=== PATIENT | male | born 1950 | race Caucasian/White ===

== ENCOUNTER → 2020-11-29 07:52 | Outpatient (CLI) | payer OTHER, SELFPAY ==
[2020-11-29] MEDS: COVID-19 VACC #1, MRNA(MOD) 100 MCG/0.5 ML VIAL IM (08:00)
== END ==
PROVIDERS: Visit Provider Internal Medicine
DX: Z23 Encounter for immunization (principal)
CPT/HCPCS: 0011A; 91301

== ENCOUNTER → 2020-12-27 07:49 | Outpatient (CLI) | payer OTHER, SELFPAY ==
[2020-12-27] MEDS: COVID-19 VACC #2, MRNA(MOD) 100 MCG/0.5 ML VIAL IM (07:53)
== END ==
PROVIDERS: Visit Provider Internal Medicine
DX: Z23 Encounter for immunization (principal)
CPT/HCPCS: 0012A; 91301

== ENCOUNTER → 2022-12-29 14:48 | Outpatient (CLI) | payer OTHER, MEDICARE, SELFPAY ==
--- NOTE | 2023-01-07 16:55 | DIAB.MNT ---
Initial Diabetes Medical Nutrition Therapy Assessment Name: Hero Meneses Date: 12/29/22 Time: 315-430p Dx: Type II Diabetes Provider: Gunnar Vin presents today for initial DM visit with , Tiff. Endorses PMH of DM x 10 years per report. FH of DM with both parents. Recent years feels he has been less careful with diet and hgA1c has crept up. Has DM cookbooks. Does not have a meter or strips. Use to check BG. Diet Recall: 730a: fast food breakfast sandwich with egg, sausage, sips of coke, hashbrown 12p: Eating out: pastrami on rye half Or 6 Czech OR soup OR Burger with med alejo and sips of coke 530p: 1.5-2c chili and 1c rice OR pasta x 2c with salad and meat sauce OR chicken with veg and potato Beverages: sips of coke, water x 30-40oz, 32oz tea, ETOH x 3-5 per week (one per sitting) Anthropometrics: Ht: 5'11 Wt: 185# reported Physical Activity: walk daily 15-20 min Self-Monitoring Blood Glucose: None Diabetes Medications: 4mg Glimepiride BID 30mg Pioglitizone 1000mg Metformin BID 23u Levemir HS Pertinent Labs: 08/2022 HgA1c : 8.6% Chol: 164 HDL: 49 T LDL: 95 Past Medical History: HTN, HLD reported Nutrition Rx: Carbohydrates: Meal:45g Snack:15-30g Nutrition Diagnosis: - Excessive CHO intake r/t nutrition knowledge deficit aeb diet recall - Self monitoring deficit r/t no SMBG aeb pt report Intervention: This participant was very receptive. Provided appropriate educational handouts. Discussed the following topics: Completed intake assessment. Discussed barriers to care. Pathophysiology of T2DM HgA1c, its correlation to blood glucose numbers, and rationale for goal Importance of self-monitoring, potential for restarting SMBG Plate Method, impact of macronutrients on blood sugar, Recommended servings for carbohydrates at meals and snacks Heart health nutrition Role of physical activity and following provider guidelines for safety Created SMART goals for patient self-care and success. Goals: 30 min walks daily keep CHO to 1-1.5c per serving Check into glucose meter Follow-up: RDN CDCES follow-up in 3-4 weeks Yi Boateng RDN, [facility] Certified Diabetes Care and Tea Room Manager P: [phone] Thank you for this referral
== END ==
PROVIDERS: Absent Provider Family Medicine; Family Provider Family Medicine; PCP Family Medicine; Referring Provider Family Medicine; Visit Provider Family Medicine
DX: E11.9 Type 2 diabetes mellitus without complications (principal); Z79.4 Long term (current) use of insulin; Z79.84 Long term (current) use of oral hypoglycemic drugs; Z71.3 Dietary counseling and surveillance
CPT/HCPCS: 97802

== ENCOUNTER → 2023-01-26 14:18 | Outpatient (CLI) | payer OTHER, MEDICARE, SELFPAY ==
--- NOTE | 2023-02-10 17:10 | DIAB.MNTFU ---
Follow-up Diabetes Medical Nutrition Therapy Assessment Name: Hero Meneses Date: 01/26/23 Time: 230-330p Dx: Type II Diabetes Provider: Gunnar Banuelos presents today for DM follow-up. Reports decreasing carb intake with breakfast choices, more eggs. States he has a weight loss goal of 5# q 3 months. Has reduced portions at dinner. Choosing no sugar added ice cream and has questions about ice cream portions/type. Diet recall indicates limited protein with some meals/snacks Long periods of fasting in afternoon sometimes, which may lead to larger portions at meals. Plans to see PCP in March. Anthropometrics: Ht: 5'11 Wt: 185# reported last visit Physical Activity: walk daily 25-30 min per day Self-Monitoring Blood Glucose: None but interested. Diabetes Medications: 4mg Glimepiride BID 30mg Pioglitizone 1000mg Metformin BID 23u Levemir HS Pertinent Labs: 08/2022 HgA1c : 8.6% Chol: 164 HDL: 49 T LDL: 95 Past Medical History: HTN, HLD reported Nutrition Rx: Carbohydrates: Meal:45g Snack:15-30g Nutrition Diagnosis: - Excessive CHO intake r/t nutrition knowledge deficit aeb diet recall - improved - Self monitoring deficit r/t no SMBG aeb pt report- continue - Inconsistent protein intake r/t nutrition knowledge deficit aeb pt report - new Intervention: This participant was very receptive. Provided appropriate educational handouts. Discussed the following topics: Pairing carbs and protein Label reading for net carbs Portions of ice cream and options for low carb choices Meal timing to avoid higher intake later in the day Eating out tips Weight loss recs for insulin sensitivity and realistic goal of 0.5-1# per week Physical activity plan and progress Created SMART goals for patient self-care and success. Goals: 30 min walks daily - met keep CHO to 1-1.5c per serving - improved Check into glucose meter - in progress Add protein to each meal/snack- new Add afternoon paired snack- new Follow-up: ILEANA MARCELO follow-up in 2-3 weeks Yi Boateng RDN, [facility] Certified Diabetes Care and Workers Compensation Attorney P: [phone] Thank you for this referral
== END ==
PROVIDERS: Family Provider Family Medicine; PCP Family Medicine; Referring Provider Family Medicine; Visit Provider Family Medicine
DX: E11.9 Type 2 diabetes mellitus without complications (principal); Z71.3 Dietary counseling and surveillance; Z79.4 Long term (current) use of insulin; Z79.84 Long term (current) use of oral hypoglycemic drugs
CPT/HCPCS: 97803

== ENCOUNTER → 2023-02-17 14:46 | Outpatient (CLI) | payer OTHER, MEDICARE, SELFPAY ==
--- NOTE | 2023-03-04 10:57 | DIAB.FU ---
Follow-up Diabetes Education Assessment Name: Hero Meneses Date: 02/17/23 Time: 3-350p Dx: Type II Diabetes Vin presents for Dm follow-up. Reports working on reducing carb portions. No ice cream lately. Pretty consistent elevations recently in BG, even after 3 hours. Physical Activity: Walking 10 min BID: once in the morning and another after breakfast. Self-Monitoring Blood Glucose: One FBG recorded of 151mg/dl. Otherwise, all readings 1-3 hours pc. Most pc readings between 200-250mg/dl with exception of a 122 and 169 mg/dl 3 hours after meals. Meals seems to range from 30-60g CHO per report. Diabetes Medications: 4mg Glimepiride BID 30mg Pioglitizone 1000mg Metformin BID 23u Levemir HS Pertinent Labs: 08/2022 HgA1c : 8.6% Chol: 164 HDL: 49 T LDL: 95 Past Medical History: HTN, HLD reported Intervention: This participant was very receptive. Provided appropriate educational handouts. Discussed the following topics: Recent blood sugar results and trends Medication management: action Pathophysiology review: gluconeogenesis and insulin resistance Review of general nutrition recommendations and current intake Physical activity plan and impact on blood sugars Created SMART goals for patient self-care and success. Goals: Add protein to each meal/snack- not met Add afternoon paired snack- not met Check BG- met Add apple and cheese to afternoon snack- new Check more FBG prior to walk- new Increase veggies at dinner- new Follow-up: ILEANA MARCELO follow-up recommended. Due to [employer]ANET/[employer] leave until Jul, unable to f/u until that time. Encouraged Vin to connect with provider regarding hyperglycemia. has f/u in March. Provided potential support resources in the interim. Yi Boateng RDN, [facility] Certified Diabetes Care and Survey Cad Technician P: [phone] Thank you for this referral
== END ==
PROVIDERS: Family Provider Family Medicine; PCP Family Medicine; Referring Provider Family Medicine; Visit Provider Family Medicine
DX: E11.9 Type 2 diabetes mellitus without complications (principal); Z79.84 Long term (current) use of oral hypoglycemic drugs; Z79.4 Long term (current) use of insulin; Z71.3 Dietary counseling and surveillance
CPT/HCPCS: G0108

== ENCOUNTER → 2023-06-14 14:25 | Outpatient (CLI) | payer OTHER, MEDICARE, SELFPAY ==
--- NOTE | 2023-06-14 | DI.RAD.S_ITS ---
PROCEDURE: XR SHOULDER RT MIN 2V INDICATIONS: SHOULDER PAIN TECHNIQUE: 3 views of the shoulder were acquired. COMPARISON: None. FINDINGS: Bones: No fractures or dislocations. No suspicious bony lesions. Visualized ribs appear intact. Glenohumeral and acromioclavicular joint space narrowing with associated osteophytosis. Soft tissues: No suspicious soft tissue calcifications. IMPRESSION: Moderate glenohumeral and acromioclavicular osteoarthritis. Dictated by: Jose Nguyen M.D. on 06/14/2023 at 15:50 Approved by: Jose Nguyen M.D. on 06/14/2023 at 15:51
== END ==
PROVIDERS: Family Provider Family Medicine; PCP Family Medicine; Referring Provider Family Medicine; Visit Provider Family Medicine
DX: M19.011 Primary osteoarthritis, right shoulder (principal); M25.511 Pain in right shoulder
CPT/HCPCS: 73030

== ENCOUNTER → 2023-08-10 14:27 | Outpatient (CLI) | payer OTHER, MEDICARE, SELFPAY ==
--- NOTE | 2023-08-11 16:52 | DIAB.MNTFU ---
Follow-up Diabetes Medical Nutrition Therapy Assessment Name: Hero Meneses Date: 08/10/23 Time: 230-310p Dx: Type II Diabetes Provider: Gunnar Banuelos presents for DM follow-up. Reports continued larger carb portions at dinner. Tried afternoon snack previously to reduce evening portions. Cannot recall if it was helpful but states he was not hungry in the afternoon. Willing to try afternoon snack again to try and reduce over consumption at dinner. Has questions about how stress impacts HTN and BG. Reports no current tools for stress management. Endorses elevated BP, not currently checking at home. Has questions regarding how to check BP properly. Vin eats out 2x per day, which may impact BP with high Na intake. Denies any changes to DM meds. Diet Recall: 8a: fast food breakfast sausage sandwich with hashbrown and a few sips of coke 1230p: Deli salad or bowl of soup 6-7p: chicken vegg, 2c rice or pasta sn: right after dinner, cheese or infrequently bowl of chips Anthropometrics: No wt today Physical Activity: walks 10-15 min twice in the morning. States his job has encouraged focused work time and small breaks to help manage stress. Interested in small walks during breaks. Self-Monitoring Blood Glucose: Reports PCP goal of FBG under 140mg/dl. Checked BG in June and most readings were 120s or less, so he stopped checking. No postprandial checks. Elevated hgA1c reported, between 7-8%? This indicates likely elevated BG later in the day. Diabetes Medications: 4mg Glimepiride BID 30mg Pioglitizone 1000mg Metformin BID 23u Levemir HS Pertinent Labs: RD will fax PCP office for new labs. 08/2022 HgA1c : 8.6% Chol: 164 HDL: 49 T LDL: 95 Past Medical History: HTN, HLD reported Nutrition Rx: Carbohydrates: Meal:45g Snack:15-30g Nutrition Diagnosis: Excessive CHO intake r/t eating out and long period of fasting in afternoon resulting in over consumption at dinner aeb diet recall Excessive Na intake r/t eating out aeb HTN and diet recall Self monitoring deficit r/t no BP or BG checks due to needing additional education aeb pt report Intervention: This participant was very receptive. Provided appropriate educational handouts. Discussed the following topics: Blood sugar review and trends of postprandial with elevated HgA1c and in goal FBG Plate Method, impact of macronutrients on blood sugar, meal timing, and spreading out carbohydrates for better blood glucose management Heart health nutrition: fats, fiber, and sodium Eating out and Na intake and HTN BP check technique and goals for people with DM per AHA Physical activity plan and progress Stress management Created SMART goals for patient self-care and success. Goals: Add apple and cheese to afternoon snack- in progress Check more FBG prior to walk- met Increase veggies at dinner- met Check pc BG readings- new Add afternoon snack again- new Try to aim for 1c CHO at dinner- new Take small breaks/walks at work- new Follow-up: ILEANA MARCELO follow-up in 2-3 weeks. Will address eating out again next visit in more detail. Yi Boateng RDN, [facility] Certified Diabetes Care and Electronic Security Specialist P: [phone] Thank you for this referral
== END ==
PROVIDERS: Family Provider Family Medicine; PCP Family Medicine; Referring Provider Family Medicine; Visit Provider Family Medicine
DX: E11.9 Type 2 diabetes mellitus without complications (principal); Z79.84 Long term (current) use of oral hypoglycemic drugs; Z79.4 Long term (current) use of insulin; Z71.3 Dietary counseling and surveillance
CPT/HCPCS: 97803

== ENCOUNTER → 2023-10-12 13:49 | Outpatient (CLI) | payer OTHER, MEDICARE, SELFPAY ==
--- NOTE | 2023-10-20 15:14 | DIAB.MNTFU ---
Follow-up Diabetes Medical Nutrition Therapy Assessment Name: Hero Meneses Date: 10/12/23 Time: 210-245p Dx: Type II Diabetes Provider: Gunnar Banuelos presents for Dm follow-up. Reports last HgA1c of 8.2%. Denies any med changes for DM. No change in work stress, though feels as though he is managing it better. No increase in movement at work, discussed last visit. Not checking Bp at home. States it was slightly elevated at PCP visit. Continued high Na intake with eating out breakfast and lunch 5 days per week or more. Has reduced fast food breakfast portions (now 45g CHO). Sometimes adding pm snack to help with dinner portions. Slight reduction i dinner potions reported. Overall feels he is reducing carb intake. Diet Recall: 8a: half hashbrown no eng muffin with breakfast sandwich (sausage and egg), sips of coke 1230p: half donald salad or bowl of soup at deli sn: nothing or apple and cheese 6-7p: veg, chicken, backed potato or 1-1.5c rice 7-8p: 2/3 mini bag popcorn Celia: water, black tea, mint tea, weekends cup of tea with 2tsp sugar Anthropometrics: Wt: 180-185# reported Physical Activity: 10-15 min walks BID mornings, plans to start tennis again. Goal of 60 min activity per week. Self-Monitoring Blood Glucose: No FBG recently, h/o 90-120mg/dl per report. Checked a few 2hr pc, 178-200s, highest of 230s mg/dl. States it is difficult to check BG pc consistently. Forgot BG log today . Diabetes Medications: 4mg Glimepiride BID 30mg Pioglitizone 1000mg Metformin BID 23u Levemir HS Pertinent Labs: HgA1c: 8% 05/2023 7.6% 02/2023 8% 11/2022 8.2% 08/2023 reported Past Medical History: HTN, HLD reported Nutrition Rx: Carbohydrates: Meal:45g Snack:15-30g Intervention: This participant was very receptive. Provided appropriate educational handouts. Discussed the following topics: Blood sugar review and trends. Impact of food intake on results. 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 Goals: Check pc BG readings- met Add afternoon snack again- 50% met Try to aim for 1c CHO at dinner- in progress Take small breaks/walks at work- not met Check 1-2 hour pc breakfast - new Bring lunch 2-3x per week- new Check 1-2 hour pc dinner or HS- new Follow-up: ILEANA MARCELO follow-up in 2-3 weeks Yi Boateng RDN, [facility] Certified Diabetes Care and Wrapper Stemmer Operator P: [phone] Thank you for this referral
== END ==
PROVIDERS: Family Provider Family Medicine; PCP Family Medicine; Referring Provider Family Medicine; Visit Provider Family Medicine
DX: E11.9 Type 2 diabetes mellitus without complications (principal); Z79.4 Long term (current) use of insulin; Z79.84 Long term (current) use of oral hypoglycemic drugs; Z71.3 Dietary counseling and surveillance
CPT/HCPCS: 97803

== ENCOUNTER → 2023-11-30 14:20 | Outpatient (CLI) | payer OTHER, MEDICARE, SELFPAY ==
--- NOTE | 2023-12-07 15:48 | DIAB.FU ---
Follow-up Diabetes Education Assessment Name: Hero Meneses Date: 11/30/23 Time: 230-325p Dx: Type II Diabetes Vin presents for Dm follow-up. Reports reduced CHO intake, avoiding bread. States he has lost some weight, with recent wt of 178#. More salads at lunch. Still eating out most days. Wants to reduce dinner portions. Reports he is not really hungry but feels it is more emotional in terms of portions. Bringing lunch to work 1-2x per week. Interested in CGM. Self-Monitoring Blood Glucose: None for review. Not consistent with SMBG recently. Reports old pc readings <180mg/dl. States it has been challenging to check pc readings during the day. Diabetes Medications: 4mg Glimepiride BID 30mg Pioglitizone 1000mg Metformin BID 23u Levemir HS Pertinent Labs: HgA1c: 8% 05/2023 7.6% 02/2023 8% 11/2022 8.2% 08/2023 reported Past Medical History: HTN, HLD reported Intervention: This participant was very receptive. Provided appropriate educational handouts. Discussed the following topics: Review of general nutrition recommendations and current intake CGM education, use, and precautions When to use meter BG goals Benefits of CGM use Directed self placement Benefits of bringing lunch to work vs eating out Created SMART goals for patient self-care and success. Goals: Check 1-2 hour pc breakfast - not met Bring lunch 2-3x per week- 50% met Check 1-2 hour pc dinner or HS- not met Wear G7 x 10 days using maintainer plant- new Keep bringing lunch- continue Follow-up: ILEANA MARCELO follow-up in 2-3 weeks Yi Boateng RDN, [facility] Certified Diabetes Care and Steel Die Press Set Up Operator P: [phone] Thank you for this referral
== END ==
PROVIDERS: Family Provider Family Medicine; PCP Family Medicine; Referring Provider Family Medicine; Visit Provider Family Medicine
DX: E11.9 Type 2 diabetes mellitus without complications (principal); Z79.84 Long term (current) use of oral hypoglycemic drugs; Z79.4 Long term (current) use of insulin; Z71.3 Dietary counseling and surveillance
CPT/HCPCS: G0108

== ENCOUNTER → 2023-12-16 14:22 | Outpatient (CLI) | payer OTHER, MEDICARE, SELFPAY ==
--- NOTE | 2023-12-23 11:04 | DIAB.MNTFU ---
Follow-up Diabetes Medical Nutrition Therapy Assessment Name: Hero Meneses Date: 12/16/23 Time: 230-320p Dx: Type II Diabetes Provider: Gunnar Banuelos presents for follow-up after trial of G7 CGM system. Found this to be very insightful for diet and dm management. Most of his hyperglycemia seems to be after meals, lunch and dinner. Hyperglycemia after dinner sometimes runs into FBG elevations. He is interested in CGM ordering through provider. RD/DELIOES can provider info to PCP. [facility] usually covers with one injection of insulin per day, however not sure of his private insurance in terms of coverage. States he has been trying to make more nutrition changes since wearing CGM. Continues often eating out for lunch. Home cooked meal with at dinner, however historically reports larger portions at that meal. Reports lower carb breakfast. Discussed potential for meal time insulin given elevations. He would prefer to try to manage with diet first. Does voice a desire to simplify dm med regimen. Encouraged discussion with PCP. Has questions about carb counting, diet changes, physical activity, medications, and complication risk. Seems motivated to make changes. Reports recent eye appt without concern. Reports occasional tingling in feet, infrequent. Anthropometrics: Weight history: reported UBW 180-185# Self-Monitoring Blood Glucose: Most of the elevations occur after lunch and dinner. large std deviation >36%. Lows are unlikely and seem related to compression of CGM device resulting in false lows. Time in range 14 days: 11% very high 25% high 62% in range 1% low <1% very low Av mg/dl Std dev: 62 mg/dl Diabetes Medications: 4mg Glimepiride BID 30mg Pioglitizone 1000mg Metformin BID 23u Levemir HS Pertinent Labs: HgA1c: 8% 05/2023 7.6% 02/2023 8% 11/2022 8.2% 08/2023 reported Past Medical History: HTN, HLD reported Nutrition Rx: Carbohydrates: Meal:45g Snack:15-30g Nutrition Diagnosis: Excessive CHO intake r/t stage of change aeb CGm reports indicating >180mg/dl after lunch and dinner and pt report Intervention: This participant was very receptive. Provided appropriate educational handouts. Discussed the following topics: Blood sugar review and trends. Impact of food intake and meds on results. Plate Method, impact of macronutrients on blood sugar, meal timing, carbohydrate counting, pairing macronutrients and spreading out carbohydrates for better blood glucose management Heart health nutrition: fiber Meal planning and carb counting review Physical activity plan and progress Pathophysiology of DM review DM medication options available DM risk reduction and complication education CGM process Created SMART goals for patient self-care and success. Goals: Wear G7 x 10 days using padded products finisher- met Keep bringing lunch- continue Try 10 min walk after dinner - new Reduce CHO at dinner- new Increase fiber as discussed- new Follow-up: ILEANA MARCELO follow-up in 2-[address] share CGM report and recommendation letter with provider. Seems diet does play a factor in his elevations, however may also benefit from dm med review and simplification. Might benefit from elimination of some dm meds (?glimepiride) and intro of GLP1, SGLT2i or meal time insulin, as provider sees appropriate. Yi Boateng, MPH, RDN, [facility] Certified Diabetes Care and Gynaecological Oncologist P: [phone] Thank you for this referral
== END ==
PROVIDERS: Family Provider Family Medicine; PCP Family Medicine
DX: E11.65 Type 2 diabetes mellitus with hyperglycemia (principal); Z79.84 Long term (current) use of oral hypoglycemic drugs; Z79.4 Long term (current) use of insulin; Z71.3 Dietary counseling and surveillance
CPT/HCPCS: 97803

== ENCOUNTER → 2024-01-06 13:52 | Outpatient (CLI) | payer OTHER, MEDICARE, SELFPAY ==
--- NOTE | 2024-01-06 15:00 | DIAB.MNTFU ---
Follow-up Diabetes Medical Nutrition Therapy Assessment Name: Hero Meneses (Vin) Date: 01/06/24 Time: 205-230p Dx: Type II Diabetes Vin presents for follow-up visit wearing CGM system Dexcom G7. Received system this past week and is enjoying it. Has noticed impact of food on BG. Does have some questions regarding impact of strenuous activity on BG, fastfood, and waking with rising BG. Since last visit, has cut CHO out of dinner almost completely most nights. Continues lower carb fast food breakfast. Predicted higher CHO at lunch given elevations and eating out. Has implemented after dinner walks, as discussed last visit. Reports recent HgA1c of 7.3% at PCP visit 12/2023. Could potentially simplify DM medications. May benefit from SGLT2i or GLP1RA. Most meals result in consistent elevations >180mg/dl, often >200mg/dl. Anthropometrics: Weight history: reported UBW 180-185# Physical Activity: 10-15 min walks BID mornings. Restarted tennis. Noticing some elevations after intense exercise. Also reports 20 min walks after dinner. Self-Monitoring Blood Glucose: Biggest elevations occur after lunch and dinner. Some elevations after breakfast as well. Overnight BG often 70-90mg/dl, indicating potential for reduced HS insulin by 2u. Reports indicate pretty consistent elevations after every meal, however only a few days documented. May benefit from a change in DM med management (ie adding SGLT2i or GLP1RA and d/c of sulfonylurea and pioglitizone?). Will review further next visit. Today: Time in range 14 days: 8% very high 31% high 59% in range 1% low 1% very low Av mg/dl Last Visit: Time in range 14 days: 11% very high 25% high 62% in range 1% low <1% very low Av mg/dl Diabetes Medications: 4mg Glimepiride BID 30mg Pioglitizone 1000mg Metformin BID 19u Levemir HS Pertinent Labs: HgA1c: 8% 05/2023 7.6% 02/2023 8% 11/2022 8.2% 08/2023 reported 7.3% 12/2023 reported Past Medical History: HTN, HLD reported Nutrition Rx: Carbohydrates: Meal:30-45g Snack:15-30g Nutrition Diagnosis: Excessive CHO intake r/t stage of change aeb CGm reports indicating >180mg/dl after lunch and dinner and pt report Intervention: This participant was very receptive. Provided appropriate educational handouts. Discussed the following topics: Blood sugar review and trends. Impact of food intake, medications, gluconeogenesis and hormones on results. Impact of hormones and new intense workouts on BG, encouraged consistency with activity Review diet changes Review of fast food CHO content Potential for DM med changes in the future given persistent elevations after each meal Physical activity plan and progress Created SMART goals for patient self-care and success. Goals: Try 10 min walk after dinner - met Reduce CHO at dinner- met Increase fiber as discussed- not discussed today Continue walks Cont lower CHO dinners Wear CGM continuously for review next visit- new Follow-up: ILEANA MARCELO follow-up in 4 weeks Yi Boateng RDN, [facility] Certified Diabetes Care and Front Desk Team Member P: [phone] Thank you for this referral
== END ==
PROVIDERS: Family Provider Family Medicine; PCP Family Medicine; Referring Provider Family Medicine
DX: E11.9 Type 2 diabetes mellitus without complications (principal); Z79.84 Long term (current) use of oral hypoglycemic drugs; Z79.4 Long term (current) use of insulin; Z71.3 Dietary counseling and surveillance
CPT/HCPCS: 97803

== ENCOUNTER → 2024-03-25 08:18 | Outpatient (CLI) | payer OTHER, MEDICARE, SELFPAY ==
[2024-03-25 09:11] LABS: Add Manual Diff / Slide Review NO; Basophils Absolute Auto 100 /uL (0-100); Basophils Percent Auto 1.3 % (0-2); Eosinophils Absolute Auto 200 /uL (0-450); Eosinophils Percent Auto 2.9 % (2-4); Hematocrit 39.9 % (41-53); Hemoglobin 13.4 g/dL (13.5-17.5); Lymphocytes Absolute Auto 1300 /uL (1100-4500); Lymphocytes Percent Auto 23.5 % (25-40); Mean Corpuscular HGB Conc 33.6 % (30-36); Mean Corpuscular Hemoglobin 28.6 PG (26-34); Mean Corpuscular Volume 85.1 fL (80-100); Monocytes Absolute Auto 800 /uL (0-900); Monocytes Percent Auto 14.5 % (3-14); Neutrophils Absolute Auto 3300 /uL (1500-7000); Neutrophils Percent Auto 57.8 % (50-75); Platelet Count 266 X10^3/uL (150-400); Red Blood Cell Count 4.69 X10^6/uL (4.5-5.9); Red Cell Distribution Width 15.4 % (11.6-14.8); White Blood Cell Count 5.7 X10^3/uL (4.5-11.0)
[2024-03-25 09:53] LABS: Free T4, Direct Thyroxine 1.17 ng/dL (0.78-2.19)
[2024-03-25 10:01] LABS: Alanine Aminotransferase 20 IU/L (<50); Albumin 4.2 g/dL (3.5-5.0); Albumin Globulin Ratio 1.4 (1.0-2.8); Alkaline Phosphatase 38 U/L (38-126); Aspartate Aminotransferase 24 IU/L (17-59); BUN Creatinine Ratio 23.8 (6-22); Bilirubin Total 0.7 mg/dL (0.2-1.3); Blood Urea Nitrogen 24 mg/dL (9-20); Calcium 9.4 mg/dL (8.4-10.2); Carbon Dioxide 27 mmol/L (22-32); Chloride 108 mmol/L (98-107); Cholesterol 158 mg/dL (140-199); Estimated Glomerular Filt Rate > 60 mL/min (>60); Glucose 112 mg/dL (80-110); HDL Cholesterol 58 mg/dL (40-60); HEMOLYSIS 20 (0-50); LDL Cholesterol Calculated 85 mg/dL (<100); Potassium 4.4 mmol/L (3.4-5.1); Sodium 139 mmol/L (137-145); Total Protein 7.2 g/dL (6.3-8.2); Triglycerides 76 mg/dL (35-150)
[2024-03-25 10:07] LABS: Thyroid Stimulating Hormone 1.86 uIU/mL (0.47-4.68)
== END ==
LOC: LAB 08:20
PROVIDERS: Family Provider Family Medicine; PCP Family Medicine; Referring Provider Family Medicine; Visit Provider Family Medicine
DX: Z00.00 Encounter for general adult medical examination without abnormal findings (principal); Z13.0 Encounter for screening for diseases of the blood and blood-forming organs and certain disorders involving the immune mechanism; Z13.29 Encounter for screening for other suspected endocrine disorder; E11.69 Type 2 diabetes mellitus with other specified complication; Z79.4 Long term (current) use of insulin
CPT/HCPCS: 36415; 80053; 80061; 84153; 84154; 84439; 84443; 85025

== ENCOUNTER → 2024-04-06 10:00 | Outpatient (CLI) | payer OTHER, MEDICARE, SELFPAY ==
--- NOTE | 2024-04-06 10:05 | DIAB.FU ---
Follow-up Diabetes Education Assessment Name: Hero Meneses (Vin) Date: 04/06/24 Time: [id number] Dx: Type II Diabetes Vin presents for follow-up visit. Has lowered Levemir due to frequent lows in the night. Some have symptoms of shakiness, but others no symptoms. Has not double checked with a finger stick. May have some compression sensor lows. Continues to eat out for breakfast and lunch on work days, though breakfast he has limited CHO portions. Notices very high BG in the 200-300s after a sandwich at lunch. is supportive and choosing lower carb options at some dinners. Endorses veggies at dinner, seems limited other parts of the day. Saw PCP. No new HgA1c this time. Overall, BG are trending in the right direction, however is having frequent elevations in the 200s after meals during the week. Will send CGM report and note to PCP for review. Does not check feet at home. Does have foot exams at PCP visits. Up to date on dental and eye appt. Anthropometrics: Weight history: reported UBW 180-185# Physical Activity: 10 min walks BID mornings. Continued tennis and not having high BG after. Less walks after dinner now. Self-Monitoring Blood Glucose: BG has improved with time in range much better. Most elevations are during work week after lunch and dinner. If no diet changes on these days, may benefit from additional diabetes medication. Encouraged more diet changes for lunches and dinners on work days. Today: Time in range 14 days: 7% very high 18% high 70% in range 4% low <1% very low Av mg/dl Std dev: 59 mg/dl GMI: 6.8% Last Visit: 8% very high 31% high 59% in range 1% low 1% very low Av mg/dl Diabetes Medications: 4mg Glimepiride BID 30mg Pioglitizone 1000mg Metformin BID 15u Levemir HS Pertinent Labs: HgA1c: 8% 05/2023 7.6% 02/2023 8% 11/2022 8.2% 08/2023 reported 7.3% 12/2023 reported Past Medical History: HTN, HLD reported Nutrition Rx: Carbohydrates: Meal:30-45g Snack:15-30g Nutrition Diagnosis: Excessive CHO intake r/t stage of change aeb CGm reports indicating >180mg/dl after lunch and dinner and pt report Intervention: This participant was very receptive. Provided appropriate educational handouts. Discussed the following topics: Blood sugar review and trends. Diabetes medications: meal time insulin v SGLT2i v GLP1 RA Lower carb options at lunch and dinner Distinct differences in BG patterns on weekends vs weekdays with eating out. Hypoglycemia in evening and potential for false lows DM risk reduction: foot care Physical activity plan and progress Created SMART goals for patient self-care and success. Goals: Continue walks- met Cont lower CHO dinners- in progress Wear CGM continuously for review next visit- met Confirm evening lows with a finger stick- new AIm for lower carb at lunch and dinner- new Check feet at home- new Follow-up: ILEANA MARCELO follow-up in 3 months after next hga1c and PCP visit. Yi Boateng RDN, [facility] Certified Diabetes Care and Technical Manager P: [phone] Thank you for this referral
== END ==
PROVIDERS: Family Provider Family Medicine; PCP Family Medicine; Referring Provider Family Medicine
DX: E11.9 Type 2 diabetes mellitus without complications (principal); Z79.84 Long term (current) use of oral hypoglycemic drugs; Z79.4 Long term (current) use of insulin
CPT/HCPCS: G0108

== ENCOUNTER → 2024-07-04 09:05 | Outpatient (CLI) | payer OTHER, MEDICARE, SELFPAY ==
--- NOTE | 2024-07-04 09:40 | DIAB.MNTFU ---
Follow-up Diabetes Medical Nutrition Therapy Assessment Name: Hero Meneses (Vin) Date: 07/04/24 Time: 910-930a Dx: Type II Diabetes Vin presents for follow-up visit. Continues with evening lows, which he has not double checked to determine if they are true lows or compression lows. No symptoms. Treats with a few sips of OJ without excessive hyperglycemia per report. Lows are often gradual and sometimes severe per CGM report. Potentially true lows some nights. Reports excessive CHO intake, especially with wheat based foods. States he notices this makes the biggest impact on BG, ie stuffing, flour tortillas. Has already eliminated sandwiches and burgers. States he feels there is room for improvement in BG and diet. Endorses wt loss of around 20# over the last year, which he is happy with. Anthropometrics: Weight history: previously reported UBW 180-185#. Most recent wt reported at 173#. Physical Activity: 10 min walks BID mornings. Continued tennis 1x per week and having high BG after. Sometimes adding 10-20 min walk later in the day Self-Monitoring Blood Glucose: Significant increase in BG over 250mg/dl, which is concerning. Below time in range goal of 70% or more. States he thinks this is mostly diet related. Today: Time in range 14 days: 15% very high 24% high 57% in range 3% low 1% very low Av mg/dl Std dev: 69 mg/dl Variability: 40.9% GMI: 7.3% Last Visit: 7% very high 18% high 70% in range 4% low <1% very low Av mg/dl Std dev: 59 mg/dl GMI: 6.8% Diabetes Medications: 4mg Glimepiride BID 30mg Pioglitizone 1000mg Metformin BID 15u Levemir HS Pertinent Labs: HgA1c: 8% 05/2023 7.6% 02/2023 8% 11/2022 8.2% 08/2023 reported 7.3% 12/2023 reported 7.3% 06/2024 reported Past Medical History: HTN, HLD reported Nutrition Rx: Carbohydrates: Meal:30-45g Snack:15-30g Nutrition Diagnosis: Excessive CHO intake r/t stage of change aeb CGm reports indicating >180mg/dl after lunch and dinner and pt report Intervention: This participant was very receptive. Provided appropriate educational handouts. Discussed the following topics: Blood sugar review and trends. Diabetes medications: meal time insulin v SGLT2i v GLP1 RA Lower carb options at lunch and dinner Impact of carbs, particularly wheat products per report Risk of complications with BG over 250mg/dl so frequently Physical activity plan and progress Hypoglycemia and review of treatment Created SMART goals for patient self-care and success. Goals: Confirm evening lows with a finger stick- not met AIm for lower carb at lunch and dinner- not met Check feet at home- not discussed Reduce wheat product portions- new Follow-up: ILEANA MARCELO follow-up in 3-4 weeks Yi Boateng RDN, [facility] Certified Diabetes Care and Technical Engineer P: [phone] Thank you for this referral
== END ==
PROVIDERS: Family Provider Family Medicine; PCP Family Medicine; Referring Provider Family Medicine
DX: E11.9 Type 2 diabetes mellitus without complications (principal); Z79.84 Long term (current) use of oral hypoglycemic drugs; Z79.4 Long term (current) use of insulin
CPT/HCPCS: 97803

== ENCOUNTER → 2024-08-04 09:52 | Outpatient (CLI) | payer OTHER, MEDICARE, SELFPAY ==
--- NOTE | 2024-09-01 17:23 | DIAB.MNTFU ---
Follow-up Diabetes Medical Nutrition Therapy Assessment Name: Hero Meneses (Vin) Date: 08/04/24 Time: 10a Dx: Type II Diabetes Vin presents for follow-up visit. Reports he thinks wheat products tend to cause the most elevations for him, ie 200-300+ mg/dl. Continues to be reduce CHO at breakfast, however later in the day may have excessive intake. Some lows per CGM, but no symptoms. Not checking with finger stick. Lows in CGM report do look authentic, not a false low it appears. Happening quite often. May need to reduce HS insulin, though continues with postprandial elevations after lunch and dinner. Due for hgA1c in September. Anthropometrics: Weight history: previously reported UBW 180-185#. Last wt reported at 173#. Physical Activity: 10 min walks BID mornings. Continued tennis 1x per week and having high BG after. Sometimes adding 10-20 min walk later in the day Self-Monitoring Blood Glucose: Reduced hyperglycemia over 250mg/dl. Improved time in range. Persistent lows. May benefit from reduced basal and added other Dm med, ie mealtime insulin? Today: Time in range 14 days: 9% very high 26% high 62% in range 3% low 1% very low Av mg/dl Std dev: 64 mg/dl Variability: 40.8% GMI: 7.1% Last Visit: 15% very high 24% high 57% in range 3% low 1% very low Av mg/dl Std dev: 69 mg/dl Variability: 40.9% GMI: 7.3% Diabetes Medications: 4mg Glimepiride BID 30mg Pioglitizone 1000mg Metformin BID 15u Levemir HS Pertinent Labs: HgA1c: 8% 05/2023 7.6% 02/2023 8% 11/2022 8.2% 08/2023 reported 7.3% 12/2023 reported 7.3% 06/2024 reported Past Medical History: HTN, HLD reported Nutrition Rx: Carbohydrates: Meal:30-45g Snack:15-30g Nutrition Diagnosis: Excessive CHO intake r/t stage of change aeb CGm reports indicating >180mg/dl after lunch and dinner and pt report- continued Intervention: This participant was very receptive. Provided appropriate educational handouts. Discussed the following topics: Blood sugar review and trends. Medication management Food journal benefits s/s and tx of lows and ways to reduce lows Created SMART goals for patient self-care and success. Goals: Reduce wheat product portions- in progress Try keeping food journal- new Double check lows without symptoms- new Reduce basal to 12u tonight- new Follow-up: ILEANA MARCELO follow-up in September per pt req. Yi Boateng RDN, [facility] Certified Diabetes Care and Director Information P: [phone] Thank you for this referral
== END ==
PROVIDERS: Family Provider Family Medicine; PCP Family Medicine; Referring Provider Family Medicine
DX: E11.9 Type 2 diabetes mellitus without complications (principal); Z71.3 Dietary counseling and surveillance
CPT/HCPCS: 97803

== ENCOUNTER → 2024-09-29 13:59 | Outpatient (CLI) | payer OTHER, MEDICARE, SELFPAY ==
--- NOTE | 2024-09-29 14:50 | DIAB.MNTFU ---
Addendum entered by Yi Boateng 09/29/24 17:01: Left message with PCP desktop support technician regarding this visit. If provider agrees, would recommend SGLT2i based on elevated BG and patients preference after discussing other DM medications. Can then titrate down insulin to reduce morning lows and hopefully better cover after meal readings with additional DM medication, while avoiding meal time insulin. See CGM results. Original Note: Follow-up Diabetes Medical Nutrition Therapy Assessment Name: Hero Meneses (Vin) Date: 09/29/24 Time: 2-245p Dx: Type II Diabetes Provider: Gunnar Banuelos presents for follow-up visit. Despite HgA1c of 7.1%, he is having pretty significant elevations during the day per CGM reports. This RD suspects his lows and elevations may be providing an average that lends itself to a better hgA1c. kept a food journal, which indicates even with moderate carb intake he is having elevated BG. Essentially, every time he eats his BG goes >180mg/dl unless he omits carbs completely. 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 We did discuss hypoglycemia risks and danger vs hyperglycemia over time. Switched to syringe and vial for insulin due to d/c of Levemir by hand tube bender. Discussed switching to a pen of a different long acting insulin, but pt reports he prefers the syringe at this time. Review of food journal does indicate some pretty high carb meals, which correlate with BG from CGM in the 200-300s. Again, though even with lower carb meals he is often >180mg/dl. Vin is aware of the higher carb meals, but states he has a very hard time limiting portions. We have been working on diet for sometime. States he is drinking more water. Takes a few sips of OJ if FBG under 150 Plans to retire mid 2024. Sees PCP again in December. Amenable to additional DM medication. RD will call/message PCP office. Anthropometrics: Weight history: 177# reported at PCP 09/2024 Self-Monitoring Blood Glucose: Increased time over 250mg/dl and over goal of <5% time over 250mg/dl. Today: Time in range 14 days: 11% very high 25% high 62% in range 2% low <1% very low Av mg/dl Std dev: 62 mg/dl Variability: 37.3% GMI: 7.3% Last Visit: 9% very high 26% high 62% in range 3% low 1% very low Av mg/dl Std dev: 64 mg/dl Variability: 40.8% GMI: 7.1% Diabetes Medications: 4mg Glimepiride BID 30mg Pioglitizone 1000mg Metformin BID 14u Levemir HS Pertinent Labs: HgA1c: 8% 05/2023 7.6% 02/2023 8% 11/2022 8.2% 08/2023 reported 7.3% 12/2023 reported 7.3% 06/2024 reported 7.1% 09/2024 reported Past Medical History: HTN, HLD reported Nutrition Rx: Carbohydrates: Meal:30-45g Snack:15-30g Nutrition Diagnosis: Excessive CHO intake r/t stage of change aeb CGm reports indicating >180mg/dl after lunch and dinner and food journal Intervention: This participant was very receptive. Provided appropriate educational handouts. Discussed the following topics: Blood sugar review and trends. Diet changes he has made and room for improvement Different DM medications and ADA recs Hypoglycemia risks vs Hyperglycemia When to use juice for BG, ie under 70 or 80 (perhaps more conservatively under 100) Types of insulin and syringe vs pen Review of BG with diet journal Created SMART goals for patient self-care and success. Goals: Try keeping food journal- met Double check lows without symptoms- not met Reduce basal to 12u tonight- not met Oj if FBG under 100mg/dl- new If no new rx by next week, please message RD to update- new Follow-up: ILEANA MARCELO follow-up in 2-3 weeks Yi Boateng RDN, [facility] Certified Diabetes Care and Tariff Inspector P: [phone] Thank you for this referral
== END ==
PROVIDERS: Family Provider Family Medicine; PCP Family Medicine; Referring Provider Family Medicine
DX: E11.9 Type 2 diabetes mellitus without complications (principal); Z79.84 Long term (current) use of oral hypoglycemic drugs; Z79.4 Long term (current) use of insulin
CPT/HCPCS: 97803

== ENCOUNTER 2024-10-19 08:07 | Day surgery (SDC) | payer OTHER, MEDICARE, SELFPAY ==
[2024-10-19 08:45] VITALS: BP 149/81; PULSE 75; RESP 18; TEMP 36.1; O2SAT 97
[2024-10-19 08:46] VITALS: BMI 24.4
[2024-10-19] MEDS: LACTATED RINGERS 1,000 ML 42 ML IV (08:57)
--- NOTE | 2024-10-19 09:09 | P.HP_ITS ---
History of Present Illness History of Present Illness Date Patient Seen: 10/19/24 Time Patient Seen: 09:09 Chief complaint: Colonoscopy Narrative: Vin is a 74-year-old man who presents for a colonoscopy. His last was over 10 years ago. He does not believe has any family history colon cancer. [facility]LY [facility], [facility] Social History household members: spouse Smoking Status: Never smoker alcohol intake: current Meds Home Medications and Allergies Home Medications Medication Instructions Recorded Confirmed Type sodium,potassium,mag sulfates 17.5 See Rx Instructions PO .COMPLEX 09/14/24 Rx gram-3.13 gram-1.6 gram oral soln #354 mL (Suprep Bowel Prep Kit) amlodipine 10 mg tablet 10 mg PO BEDTIME 10/18/24 10/19/24 History atorvastatin 40 mg tablet 40 mg PO DAILY 10/18/24 10/19/24 History fenofibrate nanocrystallized 145 145 mg PO DAILY 10/18/24 10/19/24 History mg tablet glimepiride 4 mg tablet 4 mg PO BID 10/18/24 10/19/24 History insulin glargine 100 unit/mL 15 unit SUBCUT BEDTIME 10/18/24 10/19/24 History subcutaneous solution irbesartan 300 mg tablet 300 mg PO BEDTIME 10/18/24 10/19/24 History metformin 500 mg tablet 1,000 mg PO BID 10/18/24 10/19/24 History pioglitazone 30 mg tablet 30 mg PO BEDTIME 10/18/24 10/19/24 History Allergies Allergy/AdvReac Type Severity Reaction Status Date / Time No Known Drug Allergies Allergy Verified 10/19/24 08:36 Exam Vital Signs (past 8 hours): - 10/19/24 08:45 Temperature 97 F L Pulse Rate 75 Respiratory Rate 18 Blood Pressure 149/81 H Pulse Oximetry 97 Oxygen Delivery Method Room Air Oxygen Delivery Method Room Air Const General: healthy appearing Assessment & Plan Assessment and plan (1) Colon cancer screening: Status: Acute Plan Colonoscopy Time-Based Coding :: [TOTAL MINUTES] spent with patient and on the chart (including review of chart, obtaining history, exam, reviewing outside data, placing orders, documenting exam and treatment plan, and counseling patient) on [DATE]. PROFEE Inspector Cold Working Document charge(s): No
[2024-10-19 09:36] VITALS: BP 115/54; PULSE 63; RESP 14; TEMP 36.3; O2SAT 97
--- NOTE | 2024-10-19 09:39 | PM.OP.COLON ---
Operative Date/Time/Diagnoses Date of procedure: 10/19/24 Time of procedure: 09:39 Pre-op diagnosis: Colon cancer screening Post-op diagnosis: same Procedure & Clinicians Study performed: Colonoscopy Same procedure as scheduled: Yes Surgeon: Mark Swift Procedure Notes Procedure in detail: Surgeon: Mark Swift MD Anesthesia: Myrna Blair CRNA Procedure: The patient was brought to the endoscopy suite, placed in left lateral decubitus position. The patient was connected to monitoring devices. A time-out was performed. Sedation was administered. Once the patient was adequately sedated, a digital rectal exam was performed and was normal. The scope was then inserted and advanced to the cecum where the appendiceal orifice was identified and photographed. The scope was then slowly withdrawn over greater than 6 minutes. The mucosa was thoroughly inspected. No abnormalities were found. The scope was retroflexed in the rectum. The scope was straightened and removed. The patient was awakened and brought to recovery. Scope withdrawal time: 6 minutes Sedation time: 12 minutes EBL: 0 Findings: Normal colon Post-procedure Disposition: PACU
[2024-10-19 09:41] VITALS: BP 107/58; PULSE 63; RESP 15; O2SAT 96
[2024-10-19 09:47] VITALS: BP 110/68; PULSE 62; RESP 12; O2SAT 94
[2024-10-19 09:51] VITALS: BP 136/67; PULSE 63; RESP 14; TEMP 36.5; O2SAT 95
== END 2024-10-19 10:04 | disposition home or self-care (01) ==
PROVIDERS: Family Provider Family Medicine; PCP Family Medicine; Referring Provider Surgery; Visit Provider Surgery
PROC: 0DJD8ZZ Inspection of Lower Intestinal Tract, Via Natural or Artificial Opening Endoscopic (ICD-10-PCS; CPT 45378; principal; 2024-10-19 09:15)
DX: Z12.11 Encounter for screening for malignant neoplasm of colon (principal)
CPT/HCPCS: 45378; J2704

== ENCOUNTER → 2024-10-20 14:56 | Outpatient (CLI) | payer OTHER, MEDICARE, SELFPAY ==
--- NOTE | 2024-12-08 07:38 | DIAB.MNTFU ---
Follow-up Diabetes Medical Nutrition Therapy Assessment Name: Hero Meneses (Vin) Date: 10/20/24 Time: 3-330p Dx: Type II Diabetes Provider: Gunnar Banuelos presents for follow-up visit. Reports <70mg/dl often, <55mg/dl rare. This is confirmed by TIR stats showing lows. Open to diet changes and reducing long acting insulin. Does seem he may benefit from either an oral DM med and to titrate off basal insulin or reduction in basal and adding meal time. Elevations often occur after meals and lows early hours of morning. Had a colonoscopy yesterday. For breakfast eating eggs, hashbrown and small coke. Plans to retire mid 2024. Sees PCP again in December. Amenable to additional DM medication. RD did leave message with PCP office after last visit. Anthropometrics: Weight history: 177# reported at PCP 09/2024 Self-Monitoring Blood Glucose: Similar time in range to last visit. Continued excessive time >250mg/dl. Today: Time in range 14 days: 12% very high 23% high 63% in range 2% low <1% very low Av mg/dl Std dev: 64 mg/dl Variability: 38.5% GMI: 7.3% Last Visit: 11% very high 25% high 62% in range 2% low <1% very low Av mg/dl Std dev: 62 mg/dl Variability: 37.3% GMI: 7.3% Diabetes Medications: 4mg Glimepiride BID 30mg Pioglitizone 1000mg Metformin BID 14u Levemir HS Pertinent Labs: HgA1c: 8% 05/2023 7.6% 02/2023 8% 11/2022 8.2% 08/2023 reported 7.3% 12/2023 reported 7.3% 06/2024 reported 7.1% 09/2024 reported Past Medical History: HTN, HLD reported Nutrition Rx: Carbohydrates: Meal:30-45g Snack:15-30g Nutrition Diagnosis: Excessive CHO intake r/t stage of change aeb pt report Intervention: This participant was very receptive. Provided appropriate educational handouts. Discussed the following topics: Blood sugar review and trends. Diet changes Avoiding sugar beverages Risks of lows and review of treatment and ways to reduce Medication options to discuss with provider potentially Meal plan based on foods he prefers Created SMART goals for patient self-care and success. Goals: Oj if FBG under 100mg/dl- continue If no new rx by next week, please message RD to update- not met Try no carbs and added veggies at breakfast and lunch- new Keep CHO at dinner to 1c or less- new Consider reducing HS insulin to 11u to avoid soubrette lows (20% reduction)- new Follow-up: ILEANA MARCELO follow-up in 4 weeks Yi Boateng RDN, FOZIA Certified Diabetes Care and [employer] P: [phone] Thank you for this referral
== END ==
PROVIDERS: Family Provider Family Medicine; PCP Family Medicine; Referring Provider Family Medicine
DX: E11.65 Type 2 diabetes mellitus with hyperglycemia (principal); Z71.3 Dietary counseling and surveillance; Z79.84 Long term (current) use of oral hypoglycemic drugs; Z79.4 Long term (current) use of insulin
CPT/HCPCS: 97803

== ENCOUNTER 2024-11-05 13:55 | Emergency (ER) | payer OTHER, MEDICARE, SELFPAY ==
[2024-11-05] VITALS (12 sets, daily range): BP systolic 120–157; BP diastolic 56–69; PULSE 61–75; RESP 12–27; TEMP 36.6; O2SAT 97–100; BMI 22.7
--- NOTE | 2024-11-05 14:31 | DI.RAD.S_ITS ---
PROCEDURE: XR CHEST 1V INDICATIONS: chest pain TECHNIQUE: One view of the chest was acquired. COMPARISON: None. FINDINGS: Surgical changes and devices: None. Lungs and pleura: An incomplete inspiratory result is noted, causing a crowded appearance to the lung markings. No focal infiltrates are seen. No pneumothorax or significant pleural effusions are seen. Mediastinum: Mediastinal contours appear normal. Heart size is mildly enlarged. Bones and chest wall: No suspicious bony lesions. Overlying soft tissues appear unremarkable. Age-appropriate bony degenerative changes are seen. Defibrillator pads are seen, with associated artifact. IMPRESSION: No laura acute portable chest abnormality is seen. Dictated by: Yan Cortez M.D. on 11/05/2024 at 14:34 Approved by: Yan Cortez M.D. on 11/05/2024 at 14:35
--- NOTE | 2024-11-05 14:39 | EKG_ITS ---
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
[2024-11-05 16:18] LABS: Add Manual Diff / Slide Review NO; Basophils Absolute Auto 100 /uL (0-100); Basophils Percent Auto 0.6 % (0-2); Eosinophils Absolute Auto 100 /uL (0-450); Eosinophils Percent Auto 0.9 % (2-4); Hematocrit 41.8 % (41-53); Hemoglobin 13.9 g/dL (13.5-17.5); Lymphocytes Absolute Auto 1100 /uL (1100-4500); Lymphocytes Percent Auto 10.3 % (25-40); Mean Corpuscular HGB Conc 33.4 % (30-36); Monocytes Absolute Auto 1100 /uL (0-900); Monocytes Percent Auto 10.5 % (3-14); Neutrophils Absolute Auto 7900 /uL (1500-7000); Neutrophils Percent Auto 77.7 % (50-75); Platelet Count 341 X10^3/uL (150-400); Red Cell Distribution Width 15.3 % (11.6-14.8); White Blood Cell Count 10.2 X10^3/uL (4.5-11.0)
[2024-11-05 16:23] LABS: Prothrombin Time 11.5 SECONDS (9.4-12.5)
[2024-11-05 16:26] LABS: PTT Partial Thromboplastin Tim 32 SECONDS (25.1-36.5)
[2024-11-05 16:27] LABS: Alanine Aminotransferase 35 IU/L (<50); Albumin 4.4 g/dL (3.5-5.0); Albumin Globulin Ratio 1.4 (1.0-2.8); Alkaline Phosphatase 49 U/L (38-126); Aspartate Aminotransferase 35 IU/L (17-59); BUN Creatinine Ratio 23.7 (6-22); Bilirubin Total 0.7 mg/dL (0.2-1.3); Blood Urea Nitrogen 27 mg/dL (9-20); Calcium 9.6 mg/dL (8.4-10.2); Carbon Dioxide 21 mmol/L (22-32); Chloride 106 mmol/L (98-107); Creatine Kinase 57 U/L (55-170); Estimated Glomerular Filt Rate > 60 mL/min (>60); Globulin 3.1 g/dL (1.7-4.1); Glucose 144 mg/dL (80-110); HEMOLYSIS 42 (0-50); Lipase 169 U/L (23-300); Magnesium 2.4 mg/dL (1.6-2.3); Potassium 4.4 mmol/L (3.4-5.1); Sodium 139 mmol/L (137-145); Total Protein 7.5 g/dL (6.3-8.2)
[2024-11-05 16:39] LABS: NT-proBNP (BNP-Adult 18+) 106 pg/mL (<125); Troponin I 0.014 ng/mL (0.01-0.034)
--- NOTE | 2024-11-05 18:27 | ED_ITS ---
HPI - Chest Pain General Chief Complaint: Chest Pain Stated Complaint: stent placed 10/30, feels hard, worried about bleed Time Seen by Provider: 11/05/24 18:27 Source: patient Mode of arrival: Ambulatory History of Present Illness HPI narrative: 74-year-old male with a history of diabetes hyperlipidemia hypertension recent stent placement on 10/30/2024 at [facility] comes into the ED from home for evaluation of weakness lightheadedness started this morning. He states that he is worried that he might be ?bleeding under the skin surface with a stent was placed but denies any trauma or falls denies any actual chest pain, not on any blood thinners. He denies any other symptoms such as headache visual disturbances shortness breath fever chills nausea vomiting abdominal pain or any other GI/ symptoms time. Related Data Home Medications Medication Instructions Recorded Confirmed amlodipine 10 mg tablet 10 mg PO BEDTIME 10/18/24 10/19/24 atorvastatin 40 mg tablet 40 mg PO DAILY 10/18/24 10/19/24 fenofibrate nanocrystallized 145 145 mg PO DAILY 10/18/24 10/19/24 mg tablet glimepiride 4 mg tablet 4 mg PO BID 10/18/24 10/19/24 insulin glargine 100 unit/mL 15 unit SUBCUT BEDTIME 10/18/24 10/19/24 subcutaneous solution irbesartan 300 mg tablet 300 mg PO BEDTIME 10/18/24 10/19/24 metformin 500 mg tablet 1,000 mg PO BID 10/18/24 10/19/24 pioglitazone 30 mg tablet 30 mg PO BEDTIME 10/18/24 10/19/24 Allergies Allergy/AdvReac Type Severity Reaction Status Date / Time No Known Drug Allergies Allergy Verified 11/05/24 14:23 Review of Systems Review of Systems Narrative: General: Denies fever, chills, weight loss HEENT: Denies headache, eye drainage, eye irritation, head trauma, sore throat, voice change Cardiovascular: Denies any chest pain, palpitations, shortness of breath, tachycardia Respiratory: Denies any shortness of breath, cough, wheeze, stridor GI/: Denies any abdominal pain, nausea, vomiting, diarrhea, bright red blood per rectum, melanotic stools, urinary frequency, urinary retention, dysuria, hematuria MSK: Denies any joint pain, muscle pains, swelling Skin: Bruising to the right groin Neuro: Denies any headache, lightheadedness, dizziness, fainting, weakness Psych: Denies SI/HI Patient History Social History household members: spouse Smoking Status: Never smoker alcohol intake: current Smoking Status: Never smoker Exam Narrative Exam Narrative: General: Cooperative, comfortable, well-developed, not in acute distress HEENT: Normocephalic, atraumatic, PERRLA, normal sclera, eyelids normal, Neck: Active full range of motion, atraumatic Chest: Normal to inspection, negative crepitus, no overlying erythema ecchymosis Respiratory: Normal respiratory effort, not in acute respiratory distress, clear to auscultation bilaterally negative cough, wheeze, tachypnea, rhonchi, rales Cardiology: Regular rate rhythm negative gallop, murmur, rubs GI/: Normal to inspection, soft, nonrigid, no tenderness to palpation, exam deferred MSK: Full range of active range of motion of all 4 extremities, atraumatic, no palpable mass or induration noted to the right groin overlying ecchymosis consistent with recent catheterization access he is neurovascularly intact to the bilateral lower extremities good posterior tibialis and dorsalis pedis pulses to the right lower extremity, no bruit noted on auscultation of the right groin region healing appropriately Skin: No rashes lesions noted Neuro: Alert awake oriented x3, moves all 4 extremities spontaneously, cranial nerves intact, able to answer all questions appropriately follows commands appropriately Psych: Cooperative, negative suicidal or homicidal ideations Initial Vital Signs Initial Vital Signs: Vital Signs Temperature 97.8 F 11/05/24 14:24 Pulse Rate 64 11/05/24 14:24 Respiratory Rate 16 11/05/24 14:24 Blood Pressure 123/60 11/05/24 14:24 Pulse Oximetry 98 11/05/24 14:24 Oxygen Delivery Method Room Air 11/05/24 14:24 Course Orders Ordered: ED Orders 11/05/24 14:31 XR chest 1V Stat EKG-12 Lead Stat 11/05/24 16:00 Complete Blood Count AUTO DIFF Stat Comprehensive Metabolic Panel Stat Lipase Stat Magnesium Stat NT-proBNP (BNP-Adult 18+) Stat PTT Partial Thromboplastin Brando Stat Prothrombin Time INR Stat Troponin & CK Cardiac Panel Stat Vital Signs Vital signs: Vital Signs - 8 hr 11/05/24 14:24 11/05/24 14:42 11/05/24 15:00 Temperature 97.8 F Pulse Rate 64 61 62 Respiratory Rate 16 15 21 Blood Pressure 123/60 124/58 L 120/58 L Pulse Oximetry 98 99 97 Oxygen Delivery Method Room Air 11/05/24 15:28 11/05/24 15:30 11/05/24 16:00 Temperature Pulse Rate 69 66 65 Respiratory Rate 12 27 H Blood Pressure 134/61 125/58 L 137/65 Pulse Oximetry 98 99 99 Oxygen Delivery Method 11/05/24 16:30 11/05/24 17:00 11/05/24 17:21 Temperature Pulse Rate 69 67 75 Respiratory Rate 19 15 24 Blood Pressure 131/62 129/61 157/69 H Pulse Oximetry 100 98 99 Oxygen Delivery Method 11/05/24 17:30 Temperature Pulse Rate 67 Respiratory Rate 17 Blood Pressure 120/56 L Pulse Oximetry 100 Oxygen Delivery Method MDM - Chest Pain Differential Diagnosis Differential diagnosis: Likely st elevation myocardial infarction, costochondritis and other (Anemia, electrolyte abnormality, subcutaneous hemorrhage) Lab Data 11/05/24 16:00 11/05/24 16:00 Labs: Lab Results 11/05/24 Range/Units 16:00 WBC 10.2 (4.5-11.0) X10^3/uL RBC 4.80 (4.5-5.9) X10^6/uL Hgb 13.9 (13.5-17.5) g/dL Hct 41.8 (41-53) % MCV 87.0 (80-100) fL MCH 29.0 (26-34) PG MCHC 33.4 (30-36) % RDW 15.3 H (11.6-14.8) % Plt Count 341 (150-400) X10^3/uL Neut % (Auto) 77.7 H (50-75) % Lymph % (Auto) 10.3 L (25-40) % Grady % (Auto) 10.5 (3-14) % Eos % (Auto) 0.9 L (2-4) % Baso % (Auto) 0.6 (0-2) % Neut # (Auto) 7900 H (7979-4782) /uL Lymph # (Auto) 1100 (0101-4646) /uL Grady # (Auto) 1100 H (0-900) /uL Eos # (Auto) 100 (0-450) /uL Baso # (Auto) 100 (0-100) /uL PT 11.5 (9.4-12.5) SECONDS INR 1.0 (0.9-1.3) APTT 32 (25.1-36.5) SECONDS Sodium 139 (137-145) mmol/L Potassium 4.4 (3.4-5.1) mmol/L Chloride 106 (98-107) mmol/L Carbon Dioxide 21 L (22-32) mmol/L BUN 27 H (9-20) mg/dL Creatinine 1.14 (0.66-1.25) mg/dL Estimated GFR > 60 (>60) mL/min BUN/Creatinine Ratio 23.7 H (6-22) Glucose 144 H (80-110) mg/dL Calcium 9.6 (8.4-10.2) mg/dL Magnesium 2.4 H (1.6-2.3) mg/dL Total Bilirubin 0.7 (0.2-1.3) mg/dL AST 35 (17-59) IU/L ALT 35 (<50) IU/L Alkaline Phosphatase 49 (38-126) U/L Total Creatine Kinase 57 (55-170) U/L Troponin I 0.014 (0.01-0.034) ng/mL NT-Pro-B Natriuret Pep 106 (<125) pg/mL Total Protein 7.5 (6.3-8.2) g/dL Albumin 4.4 (3.5-5.0) g/dL Globulin 3.1 (1.7-4.1) g/dL Albumin/Globulin Ratio 1.4 (1.0-2.8) Lipase 169 (23-300) U/L Imaging Data Chest x-ray: Radiologist's Impression: [address] [address] XRay Report Signed Patient: Hero Meneses MR#: [id number] : 1950 Acct:[id number] Age/Sex: 74 / M Date of Service: 11/05/24 Loc: ED Accession Number: [id number] Procedure: XR chest 1V Ordering Provider: Daniel Willard MD PROCEDURE: XR CHEST 1V INDICATIONS: chest pain TECHNIQUE: One view of the chest was acquired. COMPARISON: None. FINDINGS: Surgical changes and devices: None. Lungs and pleura: An incomplete inspiratory result is noted, causing a crowded appearance to the lung markings. No focal infiltrates are seen. No pneumothorax or significant pleural effusions are seen. Mediastinum: Mediastinal contours appear normal. Heart size is mildly enlarged. Bones and chest wall: No suspicious bony lesions. Overlying soft tissues appear unremarkable. Age-appropriate bony degenerative changes are seen. Defibrillator pads are seen, with associated artifact. IMPRESSION: No laura acute portable chest abnormality is seen. ECG Data Interpretation: EKG interpreted ED physician sinus 60 beats per minute QTC [address] changes right bundle branch block noted no STEMI MDM Narrative Medical decision making narrative: 74-year-old male with a history of hypertension hyperlipidemia diabetes with recent stent placement on 10/30/2024 at [facility] presenting for concerns of weakness lightheadedness secondary to his concern that he might be bleeding onto the surface of where his stent was placed but he has not on any blood thinners no trauma or falls no actual chest pain shortness of breath. Patient had EKG performed here nonischemic troponin negative, no anemia noted on his lab work. On evaluation of the right inguinal region were patient had catheter access there is no induration hematoma pulsatile mass bilateral lower extremities neurovascularly intact there is no pain to palpation no audible bruit healing appropriately. Patient does have follow up appointment with his primary care doctor and electrical test technician in the next week he was instructed follow up with them continue his medications strict return precautions were given he verbalized understanding of this and agrees to being discharged home with outpatient follow up Discharge Plan Departure Patient Disposition: Home Clinical Impression: Ecchymosis Activity Restrictions/Additional Instructions: Please follow up with the primary care doctor and your electrical test technician for your scheduled appointments Please read the discharge instructions sheet carefully and bring all papers to all doctor follow-up visits, as it may contain information that your doctor may want to see. Disease processes change and evolve, if your symptoms worsen or if you develop any new symptoms that are concerning to you please return for evaluation. Your evaluation today does not show any evidence of any life- threatening/serious illnesses requiring admission to the hospital or surgery. Please follow-up with your doctor for re-evaluation in approximately 1 day. Seek immediate medical attention for any worrisome symptoms. *If you do not have a primary care provider please contact the [facility] Resource line at [phone]. They will ask some questions about your medical history and help get you set up with a doctor in the community. Prescriptions: No Action metformin 500 mg Tablet 1,000 mg PO BID atorvastatin 40 mg Tablet 40 mg PO DAILY insulin glargine 100 unit/mL Solution 15 unit SUBCUT BEDTIME Patient Comments: 12 units amlodipine 10 mg Tablet 10 mg PO BEDTIME glimepiride 4 mg Tablet 4 mg PO BID pioglitazone 30 mg Tablet 30 mg PO BEDTIME irbesartan 300 mg Tablet 300 mg PO BEDTIME fenofibrate nanocrystallized 145 mg Tablet 145 mg PO DAILY Referrals: Eric Maher MD [Primary Care Provider] - Stand Alone Forms: Patient Portal/API/Survey
== END 2024-11-05 19:17 | disposition home or self-care (01) ==
PROVIDERS: Emergency Medicine; Emergency Provider Student in an Organized Health Care Education/Training Program; Family Provider Family Medicine; PCP Family Medicine
DX: R58 Hemorrhage, not elsewhere classified (principal); R42 Dizziness and giddiness; R53.1 Weakness; Z95.820 Peripheral vascular angioplasty status with implants and grafts
CPT/HCPCS: 36415; 71045; 80053; 82550; 83690; 83735; 83880; 84484; 85025; 85610; 85730; 93005; 99284

== ENCOUNTER → 2024-12-13 15:05 | Outpatient (CLI) | payer OTHER, MEDICARE, SELFPAY ==
--- NOTE | 2024-12-13 15:21 | DIAB.FU ---
Follow-up Diabetes Education Assessment Name: Hero Meneses (Vin) Date: 12/13/24 Time: 310-410p Dx: Type II Diabetes Provider: Gunnar Banuelos presents for follow-up visit, accompanied by Mavis. Reports a cardiac event in October. Cardiology started jardiance, unclear of dose. D/c of Metformin and not restarted after hospitalization 1x per week waking with BG 60mg/dl. If waking at night, takes a few sips of OJ. BP in goal daily per report. Plans to start cardio rehab. Has questions about heart healthy nutrition. Eating oats in the morning with sf syrup and eggs. +/- potatoes. Anthropometrics: Weight history: Reports -20# over the last 2 years (180# highest, now 165# per report) 177# reported at PCP 09/2024 Self-Monitoring Blood Glucose: None due to bleeding after placement. Checking FB-125mg/dl. Last Visit: Time in range 14 days: 12% very high 23% high 63% in range 2% low <1% very low Av mg/dl Std dev: 64 mg/dl Variability: 38.5% GMI: 7.3% Previous Visit: 11% very high 25% high 62% in range 2% low <1% very low Av mg/dl Std dev: 62 mg/dl Variability: 37.3% GMI: 7.3% Diabetes Medications: 4mg Glimepiride BID 30mg Pioglitizone 1000mg Metformin BID-- not taking 14u Levemir HS--- reduced to 12u Jardiance--- new Pertinent Labs: HgA1c: 8% 05/2023 7.6% 02/2023 8% 11/2022 8.2% 08/2023 reported 7.3% 12/2023 reported 7.3% 06/2024 reported 7.1% 09/2024 reported Past Medical History: HTN, HLD reported Nutrition Rx: Carbohydrates: Meal:30-45g Snack:15-30g Nutrition Diagnosis: Excessive CHO intake r/t stage of change aeb pt report- in progress Nutrition and food related knowledge deficit r/t needing more heart healthy nutrition therapy aeb pt report- new Intervention: This participant was very receptive. Provided appropriate educational handouts. Discussed the following topics: Blood sugar review and trends. Strategies for reducing bleeding at CGM site Fiber, sodium, sat fat, mono and polyunsat fat Eating out impact on heart health Potential for reduced insulin if waking <70mg/dl weekly Jaridance action Carb recs at meals/snacks Created SMART goals for patient self-care and success. Goals: Try no carbs and added veggies at breakfast and lunch- not met Keep CHO at dinner to 1c or less- in progress Consider reducing HS insulin to 11u to avoid scanning manager lows (20% reduction)- not met As PCP about Metformin restart- new Consider reducing HS insulin given lows- new Choose higher fiber foods- new Keep meals to 45g CHO or less- new Follow-up: ILEANA MARCELO follow-up in 4 weeks Yi Boateng RDN, CDCES Certified Diabetes Care and [employer] P: [phone] Thank you for this referral
== END ==
LOC: DIET 15:05
PROVIDERS: Family Provider Family Medicine; PCP Family Medicine; Referring Provider Family Medicine
DX: E11.9 Type 2 diabetes mellitus without complications (principal); Z79.84 Long term (current) use of oral hypoglycemic drugs; Z79.4 Long term (current) use of insulin; Z71.3 Dietary counseling and surveillance
CPT/HCPCS: 97803

== ENCOUNTER → 2025-01-19 13:25 | Outpatient (CLI) | payer OTHER, MEDICARE, SELFPAY ==
--- NOTE | 2025-01-24 14:29 | DIAB.MNTFU ---
Follow-up Diabetes Medical Nutrition Therapy Assessment Name: Hero Meneses (Vin) Date: 01/19/25 Time: 135-235p Dx: Type II Diabetes Provider: Gunnar Banuelos presents for follow-up visit, accompanied by Mavis. Cardiac event in October. Cardiology started jardiance, still unclear of dose. D/c of Metformin and not restarted after hospitalization. Has not discussed with provider. In the process of getting cardiac stent. Would like to wait until after this to consider restarting Metformin conversation. Also waiting on this before starting Cardio Rehab. has concerns about blending his heart healthy DM diet with her osteoporosis/arthritis diet. UTD for eye appt Dental scheduled. Diet recall: B: 1c oats wtih sf syrup and milk, eggs +/- potatoes L: salad eating out D: chx with veggies and cheese, salad, small potato Hs: celery with PB and <2TBS raisins OR popcorn Anthropometrics: 162-165# reported 01/2025 Weight history: Reports -20# over the last 2 years (180# highest, now 165# per report) 177# reported at PCP 09/2024 Self-Monitoring Blood Glucose: Has not restarted CGM due to bleeding with last few sensor placements. No SMBG this week. PRior weeks with fingersticks FBG were 85-115mg/dl. Still drinking OJ part way through the night. Due to this, may need to reduce insulin given FBG in goal with OJ mid way through the night. Diabetes Medications: 4mg Glimepiride BID 30mg Pioglitizone 1000mg Metformin BID-- not taking 14u Levemir HS--- reduced to 12u Jardiance--- 10 or 25 mg? Pertinent Labs: HgA1c: 8% 05/2023 7.6% 02/2023 8% 11/2022 8.2% 08/2023 reported 7.3% 12/2023 reported 7.3% 06/2024 reported 7.1% 09/2024 reported 6.6% 12/2024 reported Past Medical History: HTN, HLD reported Nutrition Rx: Carbohydrates: Meal:30-45g Snack:15-30g Nutrition Diagnosis: Excessive CHO intake r/t stage of change aeb pt report- improved Nutrition and food related knowledge deficit r/t needing more heart healthy nutrition therapy aeb pt report- in progress Intervention: This participant was very receptive. Provided appropriate educational handouts. Discussed the following topics: Blood sugar review and trends. Strategies for reducing bleeding at CGM site Anti inflammatory / Mediterranean diet for everyone in the house Potential for reduced insulin given OJ intake and FBG Carb recs at meals/snacks Created SMART goals for patient self-care and success. Goals: As PCP about Metformin restart- not met/continue Consider reducing HS insulin given lows- continue Choose higher fiber foods- met Keep meals to 45g CHO or less- met Follow-up: ILEANA MARCELO follow-up in 6-8 weeks or sooner lucero Boateng RDN, FOZIA Certified Diabetes Care and Physician Assistant Certified P: [phone] Thank you for this referral
== END ==
LOC: DIET 13:28
PROVIDERS: Family Provider Family Medicine; PCP Family Medicine
DX: E11.9 Type 2 diabetes mellitus without complications (principal); Z79.84 Long term (current) use of oral hypoglycemic drugs; Z79.4 Long term (current) use of insulin; Z71.3 Dietary counseling and surveillance
CPT/HCPCS: 97803

== ENCOUNTER → 2025-01-31 16:18 | Outpatient (CLI) | payer OTHER, MEDICARE, SELFPAY ==
--- NOTE | 2025-01-31 | DI.ECHO.S_ITS ---
[facility]+ [facility] : : [address] : : [place] : : [id number] : : Phone: [phone] Echocardiogram Report + + :Name: TAVO SPRINGER Study Date: 01/31/2025 Height: 71 in : :Hospital ReadingLocation: Weight: 165 lb : : Gender: Male BSA: 1.9 m2 : :: 1950 Age: 74 yrs BP: 139/74 mmHg: :Reason For Study: PERICARDIAL EFFUSION : :Ordering Physician: JUDIT, : :DEEPA Performed By: Tres Angel : :Referring: DEEPA SPAIN : + + Interpretation Summary The patient was in sinus bradycardia with heart rates between 49-59 bpm during the exam. The left ventricle is normal in size. Left ventricular wall thickness is mildly increased. The ejection fraction is estimated to be 55-60%. The right ventricle grossly appears normal in size with probable normal systolic function. No significant valvular pathology seen There is a small pericardial effusion noted. Fibrinous material seen in the pericardial space with possibility of exudative pericardial effusion. No obvious echocardiographic evidence of tamponade.BP: 139/74 mmHg Mild atherosclerotic plaque(s) in the aortic arch. Procedure: A two-dimensional transthoracic echocardiogram with color flow and Doppler was performed. The study quality was technically difficult. There is no prior echocardiogram noted for this patient. The patient was in sinus bradycardia with heart rates between 49-59 bpm during the exam. The patient was in first degree heart block during the exam. The patient had a bundle branch block rhythm during the exam. Left Ventricle: The left ventricle is normal in size. Left ventricular wall thickness is mildly increased. There is no ventricular septal defect visualized. The ejection fraction is estimated to be 55-60%. Septal motion is consistent with conduction abnormality. MV E/A: 0.88 Med Peak E' Yuri: 4.9 cm/sec E/E' med: 16.4. Right Ventricle: The right ventricle is not well visualized. The right ventricle grossly appears normal in size with probable normal systolic function. Atria: The left atrial size is normal. Right atrium not well visualized. The interatrial septum is not well visualized. Mitral Valve: There is mild mitral annular calcification. There is trace mitral regurgitation. Aortic Valve: The aortic valve is trileaflet. The aortic valve opens well. There is discrete nodular thickening of the non- coronary cusp. There is no aortic valve stenosis. No aortic regurgitation is present. Tricuspid Valve: The tricuspid valve is not well visualized, but is grossly normal. There is trace tricuspid regurgitation. Pulmonary artery pressures cannot be estimated because of the lack of a measurable TR jet velocity. Pulmonic Valve: The pulmonic valve leaflets are thin and pliable; valve motion is normal. There is no pulmonic valvular regurgitation. Great Vessels: The aortic root is normal size. The dimensions of the ascending aorta are normal. Mild atherosclerotic plaque(s) in the aortic arch. The pulmonary artery is normal size. The inferior vena cava was not visualized. Pericardium/ Pleura There is a small pericardial effusion noted. There is no pleural effusion. MMode/2D Measurements & Calculations LVIDd: 5.2 cm LVOT diam: 2.0 cm LVIDs: 4.1 cm Ao root diam: 3.3 cm FS: 22.6 % asc Aorta Diam: 3.0 cm EPSS: 0.75 cm IVSd: 1.1 cm LVPWd: 1.2 cm LV alonzo. diameter/BSA (cm/m^2): 2.7 LV sys. diameter/BSA (cm/m^2): 2.1 LA A4 area: 12.0 cm2 TAPSE: 2.0 cm LA length (vol): 4.8 cm LA A2C-A/L_phl: 18.5 cm2 Doppler Measurements & Calculations Ao V2 max: 148.1 cm/sec LVOT Max Yuri: 127.7 cm/sec Ao V2 mean: 94.0 cm/sec LV V1 max P.5 mmHg Ao max P.8 mmHg LV V1 VTI: 27.8 cm Ao mean P.1 mmHg AVEL(I,D): 2.7 cm2 Ao V2 VTI: 31.5 cm AVEL(V,D): 2.6 cm2 sev ratio: 0.88 AVEL indexed to BSA (cm^2/m^2): 1.4 MV E max yuri: 80.3 cm/sec PA V2 max: 116.6 cm/sec MV A max yuri: 90.9 cm/sec PA V2 mean: 72.9 cm/sec MV E/A: 0.88 PA mean P.5 mmHg Med Peak E' Yuri: 4.9 cm/sec PA pr(Accel): 25.9 mmHg E/E' med: 16.4 Lat Peak E' Yuri: 6.7 cm/sec E/E' lat: 12.1 E/e' average: 14.2 MV dec time: 0.32 sec SV(LVOT): 83.5 ml Reading Physician:12:41 PM
== END ==
PROVIDERS: Family Provider Family Medicine; PCP Family Medicine; Referring Provider Nurse Practitioner; Visit Provider Nurse Practitioner
DX: I25.10 Atherosclerotic heart disease of native coronary artery without angina pectoris (principal); I31.39 Other pericardial effusion (noninflammatory); R00.1 Bradycardia, unspecified; I70.0 Atherosclerosis of aorta
CPT/HCPCS: 93306

== ENCOUNTER → 2025-04-04 09:59 | Outpatient (CLI) | payer OTHER, MEDICARE, SELFPAY ==
--- NOTE | 2025-04-04 10:02 | DIAB.FU ---
Follow-up Diabetes Education Assessment Name: Hero Meneses (Vin) Date: 04/04/25 Time: 10-1030a Dx: Type II Diabetes Provider: Gunnar Banuelos presents for follow-up visit, accompanied by Mavis. Saw PCP. Jardiance up to 25mg. Did not restart Metformin after last PCP appt. Has PCP appt in the next couple weeks. Wants to do fingersticks instead of CGM. Worries about bleeding from CGM placement per report. Less OJ in the middle of the night. Cardiac event in October. Has one more stent placement in April UTD for eye appt Dental scheduled. Diet recall: 730-830a: cole in the box maria m sausage burrito with egg, keating, cheese and potato with a few sips of soda 1c oats wtih sf syrup and milk, eggs +/- potatoes 12-1p: Instructional Supervisor or taco salad OR soup eating out 6-630p: chx with veggies, salad, +/- 1c potato OR 1c rice OR 2c pasta water: 20-24oz x2 evening acid reflux lately. lately no HS snack and smaller evening dinner. Anthropometrics: 168# 03/2025 Weight history: 177# reported at PCP 09/2024 162-165# reported 01/2025 Physical Activity: Start cardio rehab this month. 3x per week. Self-Monitoring Blood Glucose: Has not restarted CGM due to bleeding with last few sensor placements. Plans to restart SMBG BID. Diabetes Medications: 4mg Glimepiride BID 30mg Pioglitizone 1000mg Metformin BID-- d/c per report 10u Glargine HS Jardiance 25 mg Pertinent Labs: HgA1c: 8% 05/2023 7.6% 02/2023 8% 11/2022 8.2% 08/2023 reported 7.3% 12/2023 reported 7.3% 06/2024 reported 7.1% 09/2024 reported 6.6% 12/2024 reported 8% 03/2025 reported Past Medical History: HTN, HLD reported Intervention: This participant was very receptive. Provided appropriate educational handouts. Discussed the following topics: Cardiovascular risks with DM and hyperglycemia Eating out recs Encouraged reduced CHO and sugar beverages Reviewed BG check options and ways to reduce bleeding with CGM Created SMART goals for patient self-care and success. Goals: As PCP about Metformin restart- met Consider reducing HS insulin given lows- met Restart BG checks- new Change to oats and eggs for breakfast- new Avoid sugar beverages- new Follow-up: ILEANA MARCELO follow-up in 4 weeks. Yi Boateng RDN, FOZIA Certified Diabetes Care and [place] [employer] Operator P: [phone] Thank you for this referral
== END ==
LOC: DIET 09:59
PROVIDERS: Family Provider Family Medicine; PCP Family Medicine
DX: E11.9 Type 2 diabetes mellitus without complications (principal); Z71.3 Dietary counseling and surveillance; Z79.84 Long term (current) use of oral hypoglycemic drugs; Z79.4 Long term (current) use of insulin
CPT/HCPCS: G0108

== ENCOUNTER → 2025-06-22 09:48 | Outpatient (CLI) | payer OTHER, MEDICARE, SELFPAY ==
--- NOTE | 2025-06-22 15:20 | DIAB.FU ---
Follow-up Diabetes Education Assessment Name: Hero Meneses (Vin) Date: 06/22/25 Time: 7946-1282 Dx: Type II Diabetes Vin presents for follow-up visit. Has not been checking BG. States he feels confident about how food impacts BG. Limited diet changes. Has been aiming for smaller dinner portions. Continues eating lunch at restaurant or fast food. Breakfast also fast food protein and sips of soda. Plans to retire at the end of this month. Cardio rehab will also be d/c'd by end of the month. No changes to Dm meds. Not wearing slippers. States he does not anticipate there is anything to protect his feet from at home. Has questions about impact of hyperglycemia on health and what each DM med does. Cardiac event in October. Last visit: UTD for eye appt Dental scheduled. Feet: does not check. Anthropometrics: 175# reported 04/2025 Weight history: 177# reported at PCP 09/2024 162-165# reported 01/2025 168# reported 03/2025 Physical Activity: Cardio rehab 3x per week. Walks 10-20 min x 2-3 days. Self-Monitoring Blood Glucose: None. Diabetes Medications: 4mg Glimepiride BID 30mg Pioglitizone 10u Glargine HS Jardiance 25 mg Pertinent Labs: HgA1c: 8% 05/2023 7.6% 02/2023 8% 11/2022 8.2% 08/2023 reported 7.3% 12/2023 reported 7.3% 06/2024 reported 7.1% 09/2024 reported 6.6% 12/2024 reported 8% 03/2025 reported 7.4% 06/2025 reported Past Medical History: HTN, HLD reported Intervention: This participant was very receptive. Provided appropriate educational handouts. Discussed the following topics: Encouraged reduced eating out Reducing Dm complications Reviewed what each dm medication action Reviewed hgA1c goals and rationale Nutritoin recs Physical activity Created SMART goals for patient self-care and success. Goals: Choose oats/eggs for breakfast 4-5x per week- not met Work on smaller dinner portions- met Check FBG and pc/HS readings a few times per week- not met Look into house slippers to protect feet- not met Choose oats/eggs for breakfast- new Eat lunch at home as much as possible- new Walk daily once cardio rehab ends- new Follow-up: ILEANA MARCELO follow-up in Oct per pt request Yi Boateng RDN, FOZIA Certified Diabetes Care and Lease Out Worker P: [phone] Thank you for this referral
== END ==
LOC: DIET 09:49
PROVIDERS: Family Provider Family Medicine; PCP Family Medicine; Referring Provider Family Medicine
DX: E11.9 Type 2 diabetes mellitus without complications (principal); Z71.3 Dietary counseling and surveillance; Z79.84 Long term (current) use of oral hypoglycemic drugs; Z79.4 Long term (current) use of insulin
CPT/HCPCS: G0108

== ENCOUNTER 2025-07-09 12:30 | Outpatient (RCR) | payer OTHER, MEDICARE, SELFPAY | END 2025-07-09 14:30 | LOC: CAR 12:30 | PROVIDERS: Family Provider Family Medicine; PCP Family Medicine; Referring Provider Family Medicine; Visit Provider Family Medicine | DX: I25.10 Atherosclerotic heart disease of native coronary artery without angina pectoris (principal); I46.9 Cardiac arrest, cause unspecified | CPT/HCPCS: 82962; 93798 ==